=== PATIENT | female | born 1970 | race Caucasian/White ===

== ENCOUNTER 2022-06-20 21:32 | Emergency (ER) | payer OTHER, SELFPAY ==
[2022-06-20 21:46] VITALS: BP 149/80; PULSE 72; RESP 16; TEMP 35.8; O2SAT 97
--- NOTE | 2022-06-20 21:57 | CRLHL7_ITS ---
For Patients: As a result of the Cures Act, medical imaging exams and procedure reports are released immediately into your electronic medical record. You may view this report before your referring provider. If you have questions, please contact your health care provider. HISTORY: Scaphoid tenderness after fall on outstretched hand. COMPARISON: None available. FINDINGS: AP, lateral, oblique and navicular views of the left wrist are obtained for a total of four views. There is no sign of fracture or dislocation. The bones of the carpus are in anatomic alignment with the distal radius. No degenerative disease is seen. The soft tissues are normal in appearance with no sign of foreign body. IMPRESSION: Normal left wrist. Dictated by Josef Grigsby MD @ 06/20/2022 10:47:34 PM (Electronically Signed)
[2022-06-20 23:16] VITALS: BP 132/64; PULSE 80; RESP 16; TEMP 36.3; O2SAT 96
--- NOTE | 2022-06-23 02:32 | ED_ITS ---
HPI - Extremity Injury (Upper) General Chief Complaint: Extremity Pain/Injury, Upper Stated Complaint: Left Wrist Injury Time Seen by Provider: 06/20/22 21:54 History of Present Illness HPI narrative: 52-year-old woman presenting to the emergency department complaint of left wrist pain. 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 Does not describe prior injuries here. Did not hit her head. There is no neck or back tenderness. No extremity injury elsewhere. Right hand. Related Data Home Medications Medication Instructions Recorded Confirmed No Known Home Medications 06/20/22 06/20/22 Allergies Allergy/AdvReac Type Severity Reaction Status Date / Time No Known Drug Allergies Allergy Verified 06/20/22 21:49 Review of Systems Status of ROS: Reports: 6 or more systems reviewed and unremarkable except as noted in History and below [facility] Social History Smoking Status: Former smoker Do you use any of these nicotine containing products: None Second hand tobacco smoke exposure: No How often do you have a drink containing alcohol: never AUDIT-C Alcohol total score: 0 Non-prescribed substance use: denies use Exam Narrative: Exam Narrative: Pleasant. Seated in the bed with her left hand outstretched. Breathing easily. Mildly uncomfortable with movement of the left hand/wrist. Head is atraumatic. Neck supple and non-tender. Back non-tender. no shoulder or elbow pain to palpation. good extremity perfusion and with intact sensation. mild swelling at dorsal left wrist. able to open and close hand without significant difficulty. most pain to palpation over the scaphoid/snuffbox. pain also to manipulation to the thumb; felt at the base of the thumb. Const: Documenting provider has reviewed patient's vital signs: yes Course Vital Signs Vital signs: Initial Vital Signs Temperature 96.4 F L 06/20/22 21:46 Temperature Source Temporal Artery Scan 06/20/22 21:46 Pulse Rate 72 06/20/22 21:46 Pulse Rhythm 06/20/22 21:46 Respiratory Rate 16 06/20/22 21:46 Blood Pressure 149/80 H 06/20/22 21:46 Blood Pressure Mean 103 06/20/22 21:46 Blood Pressure Position Sitting 06/20/22 21:46 Pulse Oximetry 97 06/20/22 21:46 Oxygen Delivery Method 06/20/22 21:46 Vital Signs Temperature 96.4 F L 06/20/22 21:46 Pulse Rate 72 06/20/22 21:46 Respiratory Rate 16 06/20/22 21:46 Blood Pressure 149/80 H 06/20/22 21:46 Pulse Oximetry 97 06/20/22 21:46 Oxygen Delivery Method 06/20/22 21:46 Temperature 97.3 F L 06/20/22 23:16 Pulse Rate 80 06/20/22 23:16 Respiratory Rate 16 06/20/22 23:16 Blood Pressure 132/64 06/20/22 23:16 Pulse Oximetry 96 06/20/22 23:16 Oxygen Delivery Method 06/20/22 23:16 MDM - Extremity Injury (Upper) MDM Narrative Medical decision making narrative: didn't feel needed any pain meds. Three view wrist x-ray reviewed by me with chip of uncertain significance at DIP of the thumb. This does not appear to be the area of pain. I do not see scaphoid abnormality. I think would benefit though from a thumb spica splint. Should isolate both the wrist and the sore base of the thumb. This was applied. Discharge Plan Discharge Clinical Impression: Left wrist sprain Patient Disposition: Home, Self-Care Condition: Stable Additional Instructions: I would ice the area that hurts a few times daily over the next few days. Elevate for comfort. Can take up to 800 mg of ibuprofen or up to 1000 mg of acetaminophen per dose; alternative to the ibuprofen could be up to 500 mg of naproxen 2 times daily. Wear the thumb spica splint for comfort and rest over this next week. If not improved in a week to 10 days, please be re-evaluated. Prescriptions: No Action No Known Home Medications Follow Up/Referrals: Clara Pierre PA-C [Primary Care Provider] - Stand Alone Forms: [place] Info Instructions
== END 2022-06-20 23:17 | disposition home or self-care (01) ==
PROVIDERS: Emergency Provider Family Medicine; PCP Physician Assistant
DX: S63.502A Unspecified sprain of left wrist, initial encounter (principal); W01.0XXA Fall on same level from slipping, tripping and stumbling without subsequent striking against object, initial encounter
CPT/HCPCS: 29125; 73110; 99283